=== PATIENT | female | born 1955 | race Caucasian/White ===

== ENCOUNTER 2022-10-10 00:41 | Observation (INO) | payer MEDICARE ==
[2022-10-10 02:34] VITALS: BMI 25.2
[2022-10-10] MEDS ORDERED: Diltiazem 125 MG in Sodium Chloride 0.9% 100 ML IVPB SCH (03:30)
[2022-10-10] MEDS ORDERED: Acetaminophen 325 MG TAB PO PRN (03:58)
[2022-10-10] MEDS ORDERED: Albuterol 200 PUFF (6.7GM INHALER) INH PRN (03:58)
[2022-10-10] MEDS ORDERED: Ondansetron PF 4 MG/2 ML Vial IVP PRN (03:58)
[2022-10-10] MEDS ORDERED: Ondansetron ODT 4 MG TAB PO PRN (03:58)
[2022-10-10] MEDS ORDERED: Acetaminophen 650 MG Suppository PR PRN (03:58)
[2022-10-10 05:01] LABS: #Lymphocytes 1.2 thou/uL (1.20-3.40); #Monocytes 0.5 thou/uL (0.11-0.59); #Neutrophils 5.5 thou/uL (1.40-6.50); %Eosinophils 0.3 % (0.0-10.0); %Lymphocytes 16.2 % (21.0-51.0); %Monocytes 6.8 % (0.0-10.0); %Neutrophils 76.8 % (42.0-75.0); Hemoglobin 12.9 g/dL (12.0-16.0); Mean Corpuscular Hemoglobin 32.7 pg (27.0-31.0); Mean Corpuscular Volume 96.3 fl (78.0-98.0); Mean Platelet Volume 7.8 fL (7.4-10.4); Platelet Count 131 10x3/uL (130-400); RBC Distribution Width 11.9 % (11.5-14.5); Red Blood Cell (RBC) Count 3.93 mill/uL (4.20-5.40); White Blood Cell (WBC) Count 7.1 10x3/uL (4.8-10.8)
[2022-10-10 05:12] LABS: INR-International Normal Ratio 1.9; Prothrombin Time 22.6 sec (12.0-14.7)
[2022-10-10 05:42] LABS: Anion Gap 13 mmol/L (10-20); BUN (Urea Nitrogen) 6 mg/dL (9.8-20.1); Calc. Creatinine Clearance 102 mL/min (70-130); Calcium 8.4 mg/dL (7.8-10.44); Carbon Dioxide 26 mmol/L (23-31); Chloride 99 mmol/L (98-107); Estimated GFR 99; Glucose 114 mg/dL (80-115); Magnesium 1.8 mg/dL (1.6-2.6); Potassium 3.3 mmol/L (3.5-5.1); Sodium 135 mmol/L (136-145)
[2022-10-10] MEDS ORDERED: Warfarin Sodium 1 MG TAB PO SCH (07:45)
[2022-10-10] MEDS ORDERED: Enoxaparin Sodium 40 MG/0.4 ML SYRINGE SC SCH (09:00)
[2022-10-10] MEDS ORDERED: Digoxin 0.125 MG TAB PO SCH (09:00)
[2022-10-10] MEDS: Ascorbic Acid 500 mg Chewable Tablet PO SCH (10:09)
[2022-10-10] MEDS: Zinc Sulfate 220 MG CAP PO SCH (10:10)
[2022-10-10] MEDS: Cholecalciferol (Vitamin D3) 400 UNITS TAB PO SCH (10:10)
[2022-10-10] MEDS ORDERED: Warfarin Sodium 5 MG TAB PO SCH (17:00)
[2022-10-10] MEDS ORDERED: Nebivolol HCl 5 MG TAB PO SCH (21:00)
[2022-10-10] MEDS ORDERED: Atorvastatin Calcium 10 MG TAB PO SCH (21:00)
[2022-10-10] MEDS: Benzonatate 100 MG CAP PO PRN (21:09)
[2022-10-11 03:54] VITALS: TEMP 97.7
[2022-10-11] MEDS: Benzonatate 100 MG CAP PO PRN ×2 (04:04→11:05)
[2022-10-11 05:12] LABS: #Eosinphils 0.1 thou/uL (0.0-0.7); #Lymphocytes 1.5 thou/uL (1.20-3.40); #Monocytes 0.8 thou/uL (0.11-0.59); #Neutrophils 5.8 thou/uL (1.40-6.50); %Basophils 0.3 % (0.0-1.0); %Eosinophils 0.7 % (0.0-10.0); %Monocytes 10.2 % (0.0-10.0); %Neutrophils 70.7 % (42.0-75.0); Hemoglobin 14.9 g/dL (12.0-16.0); INR-International Normal Ratio 1.4; Mean Corpuscular HGB CONC 33.1 g/dL (32.0-36.0); Mean Corpuscular Hemoglobin 32.5 pg (27.0-31.0); Mean Corpuscular Volume 98.1 fl (78.0-98.0); Mean Platelet Volume 7.6 fL (7.4-10.4); Platelet Count 175 10x3/uL (130-400); Prothrombin Time 17.5 sec (12.0-14.7); RBC Distribution Width 12.2 % (11.5-14.5); White Blood Cell (WBC) Count 8.2 10x3/uL (4.8-10.8)
[2022-10-11 05:30] LABS: Anion Gap 13 mmol/L (10-20); BUN (Urea Nitrogen) 8 mg/dL (9.8-20.1); Calc. Creatinine Clearance 89 mL/min (70-130); Calcium 9.2 mg/dL (7.8-10.44); Carbon Dioxide 27 mmol/L (23-31); Chloride 103 mmol/L (98-107); Estimated GFR 95; Glucose 98 mg/dL (80-115); Potassium 3.7 mmol/L (3.5-5.1); Sodium 139 mmol/L (136-145)
[2022-10-11 08:12] VITALS: BP 129/65
[2022-10-11] MEDS: Zinc Sulfate 220 MG CAP PO SCH (09:53)
[2022-10-11] MEDS: Cholecalciferol (Vitamin D3) 400 UNITS TAB PO SCH (09:53)
[2022-10-11] MEDS: Ascorbic Acid 500 mg Chewable Tablet PO SCH (09:53)
[2022-10-11] MEDS ORDERED: Warfarin Sodium 3 MG TAB PO SCH (17:00)
== END 2022-10-11 11:24 | disposition home or self-care (01) ==
LOC: 2SW 02:32
PROVIDERS: ADMIT Hospitalist; ATTEND Hospitalist
DX: I48.21 Permanent atrial fibrillation (principal); U07.1 COVID-19; I50.9 Heart failure, unspecified; Z87.891 Personal history of nicotine dependence; Z79.01 Long term (current) use of anticoagulants; Z79.899 Other long term (current) drug therapy
CPT/HCPCS: 36415; 80048; 83735; 85025; 85610; G0378